=== PATIENT | male | born 1955 | race Hispanic/Latino ===

== ENCOUNTER 2019-09-24 19:58 | Inpatient (IN) | payer OTHER ==
[~2019-09-24] VITALS: Ht 162.6 cm; Wt 63.0 kg
[2019-09-24 21:57] LABS: HEMATOCRIT 34.6 % (42-54); LYMPHOCYTES % (AUTO) 12.7 % (21.0-51.0); MEAN CORPUSCULAR HEMOGLOBIN 28.6 pg (27.0-33.0); MEAN CORPUSCULAR HGB CONC 33.8 g/dL (32.0-36.0); MEAN CORPUSCULAR VOLUME 84.6 fL (79-99); MONOCYTES % (AUTO) 8.3 % (3.0-13.0); NEUTROPHILS % (AUTO) 78.5 % (40.0-77.0); PLATELET COUNT (AUTO) 175 K/uL (130-400); RED BLOOD CELL COUNT(AUTO) 4.09 MIL/uL (4.50-6.20); RED CELL DISTRIBUTION WIDTH 12.7 % (11.0-15.5); WHITE BLOOD COUNT (AUTO) 6.5 K/uL (4.8-10.8)
[2019-09-24 22:08] LABS: INR 0.88 (0.85-1.15); PARTIAL THROMBOPLASTIN TIME 39.6 SEC (26.3-35.5); PROTHROMBIN TIME 9.6 SEC (9.6-11.6)
[2019-09-24 22:11] LABS: CREATININE 1.9 mg/dL (0.5-1.5); POTASSIUM 4.8 mmol/L (3.5-5.1)
[2019-09-24 22:16] LABS: ALBUMIN 2.8 g/dL (3.5-5.0); BILIRUBIN,TOTAL 0.4 mg/dL (0.2-1.0); CRP QUANTITATIVE 154.1 mg/L (0.00-9.0); TOTAL PROTEIN, SERUM 7.2 g/dL (6.0-8.3)
[2019-09-24] MEDS ORDERED: ACETAMINOPHEN 325 MG TAB ONE (22:27)
[2019-09-25] MEDS ORDERED: ERGOCALCIFEROL (VITAMIN D2) 50,000 UNIT CAPSULE PO ONE (00:15)
[2019-09-25] MEDS ORDERED: LACTULOSE 20 GM/30 ML UDCUP PO PRN (00:15)
[2019-09-25] MEDS: CEFTRIAXONE SODIUM 1 GM IVP SCH ×2 (00:15→12:15)
[2019-09-25] MEDS ORDERED: ONDANSETRON HCL 4 MG/2 ML VIAL IV PRN (00:15)
[2019-09-25] MEDS ORDERED: ACETAMINOPHEN 325 MG TAB PO PRN ×2 (00:15)
[2019-09-25] MEDS ORDERED: ALBUTEROL INHALER 90MCG/INH IH PRN (00:15)
[2019-09-25] MEDS ORDERED: CEFTRIAXONE SODIUM 1 GM ONE ×2 (01:12→14:27)
[2019-09-25] MEDS ORDERED: AZITHROMYCIN 250 MG TABLET PO ONE (01:12)
[2019-09-25] MEDS: DOXYCYCLINE 100MG+NS 250ML IV SCH ×2 (01:15→13:15)
[2019-09-25] MEDS ORDERED: DOXYCYCLINE 100MG+NS 250ML 250 ML IV ONE (04:43)
[2019-09-25] MEDS: INSULIN HUMULIN R 100 UNIT/ML 3ML SQ SCH ×4 (07:30→21:00)
[2019-09-25] MEDS: ASCORBIC ACID 500 MG TAB PO SCH (09:00)
[2019-09-25] MEDS: METHYLPREDNISOLONE SOD SUCC 40MG/ML 1ML IVP SCH ×3 (09:00→21:00)
[2019-09-25] MEDS: ZINC SULFATE 220 CAPSULE PO SCH (09:00)
[2019-09-25] MEDS: FAMOTIDINE 20MG TAB 20 MG TAB PO SCH ×2 (09:00→21:00)
[2019-09-25] MEDS: ENOXAPARIN SODIUM 40 MG/0.4 ML SYRINGE SQ SCH (09:00)
[2019-09-25] MEDS ORDERED: METF-527 PO (09:47)
[2019-09-25] MEDS ORDERED: ATOR10 PO (09:47)
[2019-09-25] MEDS ORDERED: ASCORBIC ACID 500 MG TAB ONE (11:35)
[2019-09-25] MEDS ORDERED: METHYLPREDNISOLONE SOD SUCC 40MG/ML 1ML ONE (11:35)
[2019-09-25] MEDS ORDERED: ENOXAPARIN SODIUM 40 MG/0.4 ML SYRINGE SQ ONE (11:36)
[2019-09-25] MEDS ORDERED: ZINC SULFATE 220 CAPSULE ONE (11:36)
[2019-09-25] MEDS ORDERED: FAMOTIDINE/PF 20 MG/2 ML VIAL IV ONE ×2 (11:36→20:40)
--- NOTE | 2019-09-25 15:02 | NUR ---
PHONE CALL Patient's , Cassie, updated by phone on patient's status.
--- NOTE | 2019-09-25 17:13 | NUR ---
SPOKE TO FAMILY AT 1415 FOR DC PLAN FARIHAJayson WADEEULOGIO WITH [facility] WHO WILL PROVIDE TRANSPORT ON DISCHARGE. IS ALERT, ACTIVE, NO DME, NO PROVIDER, NO HOME HEALTH SPOUSE DRIVES TO BRUNILDA MONROE TO FOLLOW Addendum: 09/25/19 at 1714 by ALLAN TONEY RN CM Amended: Links added.
[2019-09-25] MEDS ORDERED: INSULIN HUMULIN R 100 UNIT/ML 3ML ONE ×2 (18:10→21:49)
[2019-09-25] MEDS ORDERED: METHYLPREDNISOLONE SOD SUCC 125MG/2ML VIAL ONE (20:41)
[2019-09-26] MEDS: CEFTRIAXONE SODIUM 1 GM IVP SCH ×2 (00:15→12:15)
[2019-09-26] MEDS: DOXYCYCLINE 100MG+NS 250ML IV SCH ×2 (01:15→13:15)
[2019-09-26] MEDS ORDERED: CEFTRIAXONE SODIUM 1 GM ONE ×2 (04:04→11:58)
[2019-09-26 04:45] LABS: HEMATOCRIT 34.2 % (42-54); LYMPHOCYTES % (AUTO) 17.7 % (21.0-51.0); MEAN CORPUSCULAR HEMOGLOBIN 28.2 pg (27.0-33.0); MEAN CORPUSCULAR HGB CONC 33.9 g/dL (32.0-36.0); MEAN CORPUSCULAR VOLUME 83.2 fL (79-99); MONOCYTES % (AUTO) 5.8 % (3.0-13.0); PLATELET COUNT (AUTO) 186 K/uL (130-400); RED BLOOD CELL COUNT(AUTO) 4.11 MIL/uL (4.50-6.20); RED CELL DISTRIBUTION WIDTH 12.6 % (11.0-15.5); WHITE BLOOD COUNT (AUTO) 4.1 K/uL (4.8-10.8)
[2019-09-26 05:12] LABS: ALBUMIN 2.4 g/dL (3.5-5.0); BILIRUBIN,TOTAL 0.3 mg/dL (0.2-1.0); CREATININE 1.4 mg/dL (0.5-1.5); POTASSIUM 4.6 mmol/L (3.5-5.1); TOTAL PROTEIN, SERUM 7.2 g/dL (6.0-8.3)
[2019-09-26 05:50] LABS: CRP QUANTITATIVE 113.5 mg/L (0.00-9.0)
[2019-09-26] MEDS: INSULIN HUMULIN R 100 UNIT/ML 3ML SQ SCH ×4 (07:30→21:00)
[2019-09-26] MEDS ORDERED: DOXYCYCLINE 100MG+NS 250ML 250 ML IV ONE ×2 (08:40→21:13)
[2019-09-26] MEDS ORDERED: ASCORBIC ACID 500 MG TAB ONE (08:41)
[2019-09-26] MEDS ORDERED: ZINC SULFATE 220 CAPSULE ONE (08:41)
[2019-09-26] MEDS ORDERED: ENOXAPARIN SODIUM 40 MG/0.4 ML SYRINGE SQ ONE (08:41)
[2019-09-26] MEDS ORDERED: INSULIN HUMULIN R 100 UNIT/ML 3ML ONE ×3 (08:42→21:14)
[2019-09-26] MEDS ORDERED: FAMOTIDINE/PF 20 MG/2 ML VIAL IV ONE (08:42)
[2019-09-26] MEDS ORDERED: METHYLPREDNISOLONE SOD SUCC 40MG/ML 1ML ONE ×3 (08:50→21:13)
[2019-09-26] MEDS: METHYLPREDNISOLONE SOD SUCC 40MG/ML 1ML IVP SCH ×3 (09:00→21:00)
[2019-09-26] MEDS: ENOXAPARIN SODIUM 40 MG/0.4 ML SYRINGE SQ SCH (09:00)
[2019-09-26] MEDS: ASCORBIC ACID 500 MG TAB PO SCH (09:00)
[2019-09-26] MEDS: FAMOTIDINE 20MG TAB 20 MG TAB PO SCH ×2 (09:00→21:00)
[2019-09-26] MEDS: ZINC SULFATE 220 CAPSULE PO SCH (09:00)
--- NOTE | 2019-09-26 12:21 | NUR ---
CHART CHECK COMPLETED. Pt IS A 64 Y.O. SUSPECTED COVID-19, ARF, MILD HYPONATREMIA, ACUTE RESPIRATORY DISTRESS, CAP. Pt HAS A PAST MEDICAL HISTORY SIGNIFICANT FOR DM. Pt CURRENTLY ON REGULAR TEXTURE, THIN LIQUID DIET. PLEASE REQUEST FOR A FORMAL SPEECH/SWALLOW EVALUATION IF Pt PRESENTS WITH S/S OF ASPIRATION SUCH COUGH RESPONSE, THROAT CLEAR OR WET VOCAL QUALITY. Addendum: 09/26/19 at 1224 by SABRINA FERREIRA [facility] Amended: Links added.
--- NOTE | 2019-09-26 16:09 | NUR ---
phone call No answer
--- NOTE | 2019-09-26 16:30 | NUR ---
CM NOTE PATIENT DISCHARGED TODAY 2019 PER NOTES IN MED HOST.
--- NOTE | 2019-09-26 16:31 | NUR ---
CM NOTE AT 1630 INCORRECT PATIENT
[2019-09-26 21:00] VITALS: BP 138/78
[2019-09-26] MEDS ORDERED: ATORVASTATIN CALCIUM 20 MG TABLET ONE (21:13)
[2019-09-26] MEDS ORDERED: METOPROLOL TARTRATE 25 MG TAB ONE (21:13)
[2019-09-27] VITALS (7 sets, daily range): BP systolic 112–130; BP diastolic 68–84
[2019-09-27] MEDS: CEFTRIAXONE SODIUM 1 GM IVP SCH ×3 (00:15→23:07)
[2019-09-27] MEDS: DOXYCYCLINE 100MG+NS 250ML IV SCH ×2 (01:15→13:15)
[2019-09-27] MEDS ORDERED: CEFTRIAXONE SODIUM 1 GM ONE ×2 (01:41→09:56)
[2019-09-27 04:58] LABS: HEMATOCRIT 33.9 % (42-54); MEAN CORPUSCULAR HEMOGLOBIN 28.6 pg (27.0-33.0); MEAN CORPUSCULAR HGB CONC 33.9 g/dL (32.0-36.0); MEAN CORPUSCULAR VOLUME 84.3 fL (79-99); RED BLOOD CELL COUNT(AUTO) 4.02 MIL/uL (4.50-6.20); RED CELL DISTRIBUTION WIDTH 12.8 % (11.0-15.5); WHITE BLOOD COUNT (AUTO) 11.3 K/uL (4.8-10.8)
[2019-09-27 05:26] LABS: CREATININE 1.4 mg/dL (0.5-1.5); CRP QUANTITATIVE 41.7 mg/L (0.00-9.0); POTASSIUM 4.9 mmol/L (3.5-5.1)
[2019-09-27] MEDS: INSULIN HUMULIN R 100 UNIT/ML 3ML SQ SCH ×2 (07:30→21:04)
[2019-09-27] MEDS: METHYLPREDNISOLONE SOD SUCC 40MG/ML 1ML IVP SCH ×3 (09:00→21:03)
[2019-09-27] MEDS: FAMOTIDINE 20MG TAB 20 MG TAB PO SCH ×2 (09:00→21:03)
[2019-09-27] MEDS: ZINC SULFATE 220 CAPSULE PO SCH (09:00)
[2019-09-27] MEDS: ENOXAPARIN SODIUM 40 MG/0.4 ML SYRINGE SQ SCH (09:00)
[2019-09-27] MEDS: ASCORBIC ACID 500 MG TAB PO SCH (09:00)
[2019-09-27] MEDS ORDERED: METHYLPREDNISOLONE SOD SUCC 40MG/ML 1ML ONE (09:54)
[2019-09-27] MEDS ORDERED: FAMOTIDINE 20MG TAB 20 MG TAB ONE (09:55)
[2019-09-27] MEDS ORDERED: DOXYCYCLINE 100MG+NS 250ML 250 ML IV ONE (09:55)
[2019-09-27] MEDS ORDERED: ENOXAPARIN SODIUM 40 MG/0.4 ML SYRINGE SQ ONE (09:55)
[2019-09-27] MEDS ORDERED: ZINC SULFATE 220 CAPSULE ONE (09:55)
--- NOTE | 2019-09-27 10:29 | NUR ---
CM NOTES ON 1630 ON WRONG PT PLEASE IGNORE
[2019-09-27] MEDS ORDERED: INSULIN HUMULIN R 100 UNIT/ML 3ML ONE ×2 (12:29→16:15)
[2019-09-28] VITALS (8 sets, daily range): BP systolic 133–160; BP diastolic 73–95
[2019-09-28] MEDS: INSULIN HUMULIN R 100 UNIT/ML 3ML SQ SCH ×4 (05:29→21:27)
[2019-09-28 05:44] LABS: CRP QUANTITATIVE 20.6 mg/L (0.00-9.0)
[2019-09-28] MEDS: DOXYCYCLINE 100MG+NS 250ML IV SCH (06:00)
[2019-09-28] MEDS: ASCORBIC ACID 500 MG TAB PO SCH (08:49)
[2019-09-28] MEDS: ENOXAPARIN SODIUM 40 MG/0.4 ML SYRINGE SQ SCH (08:49)
[2019-09-28] MEDS: ZINC SULFATE 220 CAPSULE PO SCH (08:49)
[2019-09-28] MEDS: FAMOTIDINE 20MG TAB 20 MG TAB PO SCH ×2 (08:51→21:26)
[2019-09-28] MEDS: METHYLPREDNISOLONE SOD SUCC 40MG/ML 1ML IVP SCH ×3 (08:51→21:26)
[2019-09-28] MEDS: CEFTRIAXONE SODIUM 1 GM IVP SCH (11:42)
[2019-09-28] MEDS: DOXYCYCLINE HYCLATE 100 MG TABLET PO SCH ×2 (13:05→21:26)
--- NOTE | 2019-09-28 13:36 | NUR ---
CM NOTE/[facility] O2 REQUEST REQUEST FOR HOME OXYGEN SENT TO [facility], UNDER REVIEW. CM TO FOLLOW UP ACCORDINGLY.
--- NOTE | 2019-09-28 15:31 | NUR ---
PER DR. MOTA PT IS TO BE WEANED OFF 02. PT IS OFF O2 ON ROOM AIR WILL MONITOR TO SEE HOW HE TOLERATES NEW ORDERS.
--- NOTE | 2019-09-28 17:13 | NUR ---
PT. IS TOLERATING WELL BEING ON ROOM AIR 92%SP02
[2019-09-29] VITALS (7 sets, daily range): BP systolic 145–172; BP diastolic 68–101
[2019-09-29 06:01] LABS: BASOPHILS % (AUTO) 0.1 % (0.0-5.0); HEMATOCRIT 35.8 % (42-54); MEAN CORPUSCULAR HEMOGLOBIN 28.5 pg (27.0-33.0); MEAN CORPUSCULAR HGB CONC 34.1 g/dL (32.0-36.0); MEAN CORPUSCULAR VOLUME 83.6 fL (79-99); MONOCYTES % (AUTO) 6.8 % (3.0-13.0); NEUTROPHILS % (AUTO) 83.9 % (40.0-77.0); PLATELET COUNT (AUTO) 265 K/uL (130-400); RED BLOOD CELL COUNT(AUTO) 4.28 MIL/uL (4.50-6.20); RED CELL DISTRIBUTION WIDTH 12.6 % (11.0-15.5); WHITE BLOOD COUNT (AUTO) 9.1 K/uL (4.8-10.8)
[2019-09-29] MEDS: INSULIN HUMULIN R 100 UNIT/ML 3ML SQ SCH ×4 (06:11→20:57)
[2019-09-29 06:23] LABS: CARBON DIOXIDE 27 mmol/L (21-32); CHLORIDE 108 mmol/L (101-111); CREATININE 1.1 mg/dL (0.5-1.5); GLOMERULAR FILTR. RATE CALC 72 mL/min (>60); GLUCOSE,RANDOM 206 mg/dL (70-105); LACTATE DEHYDROGENASE 270 U/L (81-234); SODIUM SERUM 141 mmol/L (136-145); UREA NITROGEN, BLOOD 45 mg/dL (7-18)
--- NOTE | 2019-09-29 08:00 | NUR ---
PT DIDN'T TOLERATE BEING OFF OF 02, SPO2 @88%. WILL PUT NC BACK ON 2 LITERS SPO2 94%
[2019-09-29] MEDS: DOXYCYCLINE HYCLATE 100 MG TABLET PO SCH ×2 (08:41→20:56)
[2019-09-29] MEDS: CEFTRIAXONE SODIUM 1 GM IVP SCH ×2 (08:41→20:56)
[2019-09-29] MEDS: FAMOTIDINE 20MG TAB 20 MG TAB PO SCH ×2 (08:41→20:56)
[2019-09-29] MEDS: ASCORBIC ACID 500 MG TAB PO SCH (08:44)
[2019-09-29] MEDS: ENOXAPARIN SODIUM 40 MG/0.4 ML SYRINGE SQ SCH (08:44)
[2019-09-29] MEDS: ZINC SULFATE 220 CAPSULE PO SCH (08:49)
[2019-09-29] MEDS: DEXAMETHASONE 4 MG TAB PO SCH (11:20)
--- NOTE | 2019-09-29 11:59 | NUR ---
CM NOTE/[facility] PER BRIANNA AT [facility] PATIENT, REFERRAL FOR HOME O2 UNDER PROCESS AND WILL CALL ME WITH DETAILS REGARDING PROCESS
[2019-09-29] MEDS ORDERED: HYDRALAZINE HCL 20 MG/ML VIAL ONE (15:44)
[2019-09-29] MEDS ORDERED: HYDRALAZINE HCL 20 MG/ML VIAL IM SCH ×2 (16:00→16:45)
[2019-09-29] MEDS ORDERED: HYDRALAZINE HCL 20 MG/ML VIAL IV SCH (16:15)
[2019-09-29] MEDS: ATORVASTATIN CALCIUM 10 MG TABLET PO SCH (20:56)
[2019-09-29] MEDS ORDERED: HYDRALAZINE HCL 20 MG/ML VIAL IV PRN (23:00)
[2019-09-30 03:55] VITALS: BP 151/84
[2019-09-30] MEDS: INSULIN HUMULIN R 100 UNIT/ML 3ML SQ SCH ×4 (06:41→20:49)
[2019-09-30] MEDS ORDERED: METFORMIN HCL 1000 MG PO SCH (07:30)
[2019-09-30 08:00] VITALS: BP 151/88
[2019-09-30] MEDS: METFORMIN HCL 500 MG TAB.SR.24H PO SCH ×2 (08:00→16:39)
[2019-09-30] MEDS: AMLODIPINE BESYLATE 5 MG TAB PO SCH (08:00)
[2019-09-30] MEDS: ZINC SULFATE 220 CAPSULE PO SCH (08:00)
[2019-09-30] MEDS: FAMOTIDINE 20MG TAB 20 MG TAB PO SCH ×2 (08:00→21:01)
[2019-09-30] MEDS: ASCORBIC ACID 500 MG TAB PO SCH (08:00)
[2019-09-30] MEDS: DOXYCYCLINE HYCLATE 100 MG TABLET PO SCH ×2 (08:00→21:01)
[2019-09-30] MEDS: CEFTRIAXONE SODIUM 1 GM IVP SCH ×2 (08:00→21:01)
[2019-09-30] MEDS: ENOXAPARIN SODIUM 40 MG/0.4 ML SYRINGE SQ SCH (08:01)
[2019-09-30] MEDS: DEXAMETHASONE 4 MG TAB PO SCH (08:05)
[2019-09-30 09:15] LABS: LACTATE DEHYDROGENASE 295 U/L (81-234)
[2019-09-30 12:00] VITALS: BP 144/84
--- NOTE | 2019-09-30 15:55 | NUR ---
O2 FOLLOW UP CM spoke to tour sales representative from [facility]. States o2 will require prior auth. CM to follow up on Wednesday.
[2019-09-30 16:00] VITALS: BP 144/86
[2019-09-30 19:30] VITALS: BP 139/88
[2019-09-30] MEDS: ATORVASTATIN CALCIUM 10 MG TABLET PO SCH (21:01)
[2019-09-30 23:14] VITALS: BP 119/75
[2019-10-01 03:20] VITALS: BP 149/88
[2019-10-01] MEDS: METFORMIN HCL 500 MG TAB.SR.24H PO SCH ×2 (06:36→16:40)
[2019-10-01] MEDS: INSULIN HUMULIN R 100 UNIT/ML 3ML SQ SCH ×4 (06:37→21:50)
[2019-10-01 08:00] VITALS: BP 130/82
[2019-10-01 08:07] LABS: CARBON DIOXIDE 27 mmol/L (21-32); CHLORIDE 107 mmol/L (101-111); GLOMERULAR FILTR. RATE CALC 80 mL/min (>60); GLUCOSE,RANDOM 103 mg/dL (70-105); LACTATE DEHYDROGENASE 235 U/L (81-234); POTASSIUM 4.4 mmol/L (3.5-5.1); SODIUM SERUM 139 mmol/L (136-145); UREA NITROGEN, BLOOD 37 mg/dL (7-18)
[2019-10-01] MEDS: DEXAMETHASONE 4 MG TAB PO SCH (08:50)
[2019-10-01] MEDS: ASCORBIC ACID 500 MG TAB PO SCH (08:51)
[2019-10-01] MEDS: FAMOTIDINE 20MG TAB 20 MG TAB PO SCH ×2 (08:51→19:41)
[2019-10-01] MEDS: DOXYCYCLINE HYCLATE 100 MG TABLET PO SCH ×2 (08:51→19:41)
[2019-10-01] MEDS: AMLODIPINE BESYLATE 5 MG TAB PO SCH (08:51)
[2019-10-01] MEDS: CEFTRIAXONE SODIUM 1 GM IVP SCH ×2 (08:52→19:41)
[2019-10-01] MEDS: ZINC SULFATE 220 CAPSULE PO SCH (08:52)
[2019-10-01] MEDS: ENOXAPARIN SODIUM 40 MG/0.4 ML SYRINGE SQ SCH (08:53)
[2019-10-01 12:15] VITALS: BP 136/78
[2019-10-01 16:00] VITALS: BP 138/83
[2019-10-01 19:40] VITALS: BP 149/86
[2019-10-01] MEDS: ATORVASTATIN CALCIUM 10 MG TABLET PO SCH (19:41)
[2019-10-01 23:36] VITALS: BP 134/88
[2019-10-02 03:40] VITALS: BP 149/82
[2019-10-02] MEDS: INSULIN HUMULIN R 100 UNIT/ML 3ML SQ SCH ×4 (06:04→21:48)
[2019-10-02 07:45] LABS: BASOPHILS % (AUTO) 0.2 % (0.0-5.0); EOSINOPHILS % (AUTO) 0.5 % (0.0-8.0); HEMATOCRIT 34.9 % (42-54); LYMPHOCYTES % (AUTO) 15.1 % (21.0-51.0); MEAN CORPUSCULAR HEMOGLOBIN 28.6 pg (27.0-33.0); MEAN CORPUSCULAR HGB CONC 34.4 g/dL (32.0-36.0); MEAN CORPUSCULAR VOLUME 83.1 fL (79-99); NEUTROPHILS % (AUTO) 70.5 % (40.0-77.0); PLATELET COUNT (AUTO) 319 K/uL (130-400); RED CELL DISTRIBUTION WIDTH 12.3 % (11.0-15.5); WHITE BLOOD COUNT (AUTO) 8.4 K/uL (4.8-10.8)
[2019-10-02 08:38] LABS: CARBON DIOXIDE 27 mmol/L (21-32); CHLORIDE 104 mmol/L (101-111); CREATININE 1.1 mg/dL (0.5-1.5); GLOMERULAR FILTR. RATE CALC 72 mL/min (>60); GLUCOSE,RANDOM 156 mg/dL (70-105); LACTATE DEHYDROGENASE 229 U/L (81-234); POTASSIUM 4.6 mmol/L (3.5-5.1); SODIUM SERUM 138 mmol/L (136-145); UREA NITROGEN, BLOOD 37 mg/dL (7-18)
[2019-10-02] MEDS: AMLODIPINE BESYLATE 5 MG TAB PO SCH (09:18)
[2019-10-02] MEDS: ZINC SULFATE 220 CAPSULE PO SCH (09:18)
[2019-10-02] MEDS: DEXAMETHASONE 4 MG TAB PO SCH (09:19)
[2019-10-02] MEDS: ASCORBIC ACID 500 MG TAB PO SCH (09:19)
[2019-10-02] MEDS: METFORMIN HCL 500 MG TAB.SR.24H PO SCH ×2 (09:19→16:39)
[2019-10-02] MEDS: DOXYCYCLINE HYCLATE 100 MG TABLET PO SCH ×2 (09:19→21:47)
[2019-10-02] MEDS: CEFTRIAXONE SODIUM 1 GM IVP SCH (09:19)
[2019-10-02] MEDS: FAMOTIDINE 20MG TAB 20 MG TAB PO SCH ×2 (09:19→21:47)
[2019-10-02] MEDS: ENOXAPARIN SODIUM 40 MG/0.4 ML SYRINGE SQ SCH (09:20)
[2019-10-02 09:33] VITALS: BP 132/79
[2019-10-02 11:40] VITALS: BP 141/80
--- NOTE | 2019-10-02 13:05 | NUR ---
CM NOTE/[facility] PENDING AUTH FOR O2 PER BRIANNA AT [facility], PENDING AUTHORIZATION FOR HOME O2 FROM SUPERIOR EXCHANGE. PER BRIANNA, PATIENT HAS COPAY. SPOUSE AND DAUGHTER PHONE NUMBER GIVEN, SAME FACE SHEET THAT WAS INCLUDED IN HOME OXYGEN REFERRAL. CM TO FOLLOW UP ACCORDINGLY.
[2019-10-02 17:02] VITALS: BP 135/87
--- NOTE | 2019-10-02 18:23 | NUR ---
1700 SPOKE WITH STONE UNLOADER AND PT WAS SUSTAINING A RATE OF 150'S UPON ASSESSMENT WAS RETURNING FROM AMBULATING FROM THE BATHROOM WITHOUT OXYGEN. PT DENIES SHORTNESS OF BREATH, PT PLACED BACK ON 2 LITERS. HR RETURNED TO 102-104, SINUS TACHYCARDIA ON TELE.
[2019-10-02] MEDS: ATORVASTATIN CALCIUM 10 MG TABLET PO SCH (21:47)
[2019-10-02 21:57] VITALS: BP 121/86
[2019-10-03 00:09] VITALS: BP 123/82
[2019-10-03 06:06] VITALS: BP 130/88
[2019-10-03 06:23] LABS: BASOPHILS % (AUTO) 0.2 % (0.0-5.0); EOSINOPHILS % (AUTO) 0.3 % (0.0-8.0); HEMATOCRIT 35.5 % (42-54); LYMPHOCYTES % (AUTO) 12.1 % (21.0-51.0); MEAN CORPUSCULAR HEMOGLOBIN 28.4 pg (27.0-33.0); MEAN CORPUSCULAR HGB CONC 34.4 g/dL (32.0-36.0); MEAN CORPUSCULAR VOLUME 82.8 fL (79-99); MONOCYTES % (AUTO) 9.5 % (3.0-13.0); NEUTROPHILS % (AUTO) 75.3 % (40.0-77.0); PLATELET COUNT (AUTO) 336 K/uL (130-400); RED BLOOD CELL COUNT(AUTO) 4.29 MIL/uL (4.50-6.20); RED CELL DISTRIBUTION WIDTH 12.6 % (11.0-15.5); WHITE BLOOD COUNT (AUTO) 9.5 K/uL (4.8-10.8)
[2019-10-03 06:32] LABS: CARBON DIOXIDE 29 mmol/L (21-32); CHLORIDE 104 mmol/L (101-111); CREATININE 1.1 mg/dL (0.5-1.5); GLOMERULAR FILTR. RATE CALC 72 mL/min (>60); GLUCOSE,RANDOM 147 mg/dL (70-105); LACTATE DEHYDROGENASE 204 U/L (81-234); POTASSIUM 4.4 mmol/L (3.5-5.1); SODIUM SERUM 139 mmol/L (136-145); UREA NITROGEN, BLOOD 38 mg/dL (7-18)
[2019-10-03] MEDS: INSULIN HUMULIN R 100 UNIT/ML 3ML SQ SCH ×3 (06:35→17:04)
[2019-10-03 08:06] VITALS: BP 136/83
[2019-10-03] MEDS: DOXYCYCLINE HYCLATE 100 MG TABLET PO SCH (08:22)
[2019-10-03] MEDS: METFORMIN HCL 500 MG TAB.SR.24H PO SCH ×2 (08:22→17:00)
[2019-10-03] MEDS: AMLODIPINE BESYLATE 5 MG TAB PO SCH (08:23)
[2019-10-03] MEDS: FAMOTIDINE 20MG TAB 20 MG TAB PO SCH (08:23)
[2019-10-03] MEDS: ASCORBIC ACID 500 MG TAB PO SCH (08:23)
[2019-10-03] MEDS: ZINC SULFATE 220 CAPSULE PO SCH (08:23)
[2019-10-03] MEDS: DEXAMETHASONE 4 MG TAB PO SCH (08:23)
[2019-10-03] MEDS: ENOXAPARIN SODIUM 40 MG/0.4 ML SYRINGE SQ SCH (08:26)
[2019-10-03 11:28] VITALS: BP 138/86
[2019-10-03 15:53] VITALS: BP 137/86
[2019-10-03] MEDS ORDERED: DEXA6TAB PO (16:49)
[2019-10-03] MEDS ORDERED: ASPI-1012 PO (16:49)
--- NOTE | 2019-10-03 17:20 | NUR ---
CM NOTE/OXYGEN PER DR. FRANKLIN, PATIENT IS TO BE DISCHARGE HOME TODAY. MADE AWARE OF NEED FOR PENDING OXYGEN FROM [facility], PENDING AUTHORIZATION. PER MD, PATIENT HAS BEEN ON ROOM AIR AND NOT EXPERIENCED SHORTNESS OF BREATH. WILL DC HOME TODAY ON ROOM AIR. [facility] CALLED TO [facility] OXYGEN REFERRAL, ANSWERING SERVICE MADE AWARE, STATES STAFF WILL CALL ME IN AM TO FINALIZE CANCELLATION OF REFERRAL.
== END 2019-10-03 18:35 | disposition home or self-care (01) | DRG 177 ==
LOC: EDH 19:58 → EDHIP 09-25 00:10 → 4DH 09-27 20:11
PROVIDERS: ADMIT Hospitalist; ATTEND Hospitalist
DX: U07.1 COVID-19 (principal); J12.89 Other viral pneumonia; J96.01 Acute respiratory failure with hypoxia; N17.9 Acute kidney failure, unspecified; E87.1 Hypo-osmolality and hyponatremia; E11.65 Type 2 diabetes mellitus with hyperglycemia
CPT/HCPCS: 36415; 71045; 80048; 80053; 82728; 82948; 83605; 83615; 84145; 85025; 85027; 85378; 85610; 85730; 86140; 86900; 86901; 87804; 94760; G0378; J0360; J0696; J1650; J1815; J2920; J2930; J3490; J8540; U0003